=== PATIENT | female | born 1990 | race Caucasian/White ===

== ENCOUNTER 2024-09-08 15:09 | Emergency (ER) | payer BC, SELFPAY ==
[2024-09-08 15:22] VITALS: BP 117/74; PULSE 90; RESP 16; TEMP 36.6; O2SAT 98; BMI 43.6
--- NOTE | 2024-09-08 16:10 | CRLHL7_ITS ---
For Patients: As a result of the Century Cures Act, medical imaging exams and procedure reports are released immediately into your electronic medical record. You may view this report before your referring provider. If you have questions, please contact your health care provider. Indication: Right flank pain. Technique: CT images of the abdomen and pelvis following intravenous contrast. Comparison: None. Findings: No concerning opacities in the visualized lungs. No pleural effusion. Heart size is normal. The liver, gallbladder, spleen, and pancreas are unremarkable. The adrenal glands and kidneys are unremarkable. The stomach is mildly distended. Appendix is unremarkable. No abnormally dilated loops of bowel. No free fluid or free air. Abdominal aorta is normal in caliber. No pathologically enlarged lymph nodes. The urinary bladder is underdistended. Hysterectomy. No aggressive osseous lesions. Impression: No acute abnormality in the abdomen or pelvis. Please note that all CT scans at this facility use dose modulation, iterative reconstruction, and/or weight-based dosing when appropriate to reduce radiation dose to as low as reasonably achievable. Dictated by Rian Knight MD @ 09/08/2024 6:21:01 PM (Electronically Signed)
--- NOTE | 2024-09-08 16:25 | ED.GENADULT ---
HPI - General Adult General Date Seen: 09/08/24 Chief complaint: Flank Pain Stated complaint: back pain/left foot pain Time Seen by Provider: 09/08/24 15:51 Source: patient and translator/interpreter Mode of arrival: ambulatory Limitations: no limitations History of Present Illness HPI narrative: Patient is a 34-year-old female presenting to the emergency department for multiple complaints. Her 1st complaint is left foot pain that has been going on for the past month. It is on the plantar aspect of her foot near her heel. She states it is worse in the morning and also worse whenever she is walking around. Has never had pain like this before. She feels like the pain goes up her leg. Has been using ibuprofen at home with minimal improvement in her symptoms. Denies numbness or weakness of the foot. She is also complaining about right flank pain. She states the pain starts in her right low flank and radiates to her mid low back. This pain is been going on for the past few days. Seems to be getting worse she states. Nothing seems to be making it better. 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 Does not remember hurting her back though. She does states she has been having intermittent burning with urination over the past couple months. She states the burning sensation will go on for couple days then go away for few days and continues to go back and forth. She has not seen her primary care provider for any of these issues yet. Describes the back pain also as a burning sensation. Does not seem to radiate anywhere. Denies any abdominal pain. Denies chest pain, shortness of breath, lightheadedness, dizziness, weakness numbness, fevers, chills, nausea. Denies urinary retention, urinary or bowel incontinence, saddle anesthesia. Related Data Home Medications ?Medication ?Instructions ?Recorded ?Confirmed insulin aspart U-100 100 unit/mL 16 - 30 unit subcut 3XD 08/02/23 09/08/24 (3 mL) subcutaneous pen (Novolog FlexPen U-100 Insulin aspart) insulin lispro 100 unit/mL 1 sliding scale dose subcut 01/21/24 01/21/24 subcutaneous pen Allergies Allergy/AdvReac Type Severity Reaction Status Date / Time Iodinated Contrast Media Allergy Intermediate itch Verified 09/08/24 15:27 metformin AdvReac Unknown Verified 09/08/24 15:20 Review of Systems Status of ROS: Reports: 10 or more systems reviewed and unremarkable except as noted in History and below Exam Narrative: Exam Narrative: Const: Well-nourished, Well-developed, in mild distress Eyes: PERRL, no conjunctival injection, and symmetrical lids HENT: Atraumatic external nose and ears. Moist mucous membranes. Neck: Symmetric, trachea midline, No thyromegaly. CVS: RRR, No murmurs or gallops. Peripheral pulses 2+ and equal in all extremities RESP: Unlabored respiratory effort. Clear to auscultation bilaterally. GI: Nontender/Nondistended, No rebound or guarding. MSK: Tenderness near the heel on the plantar aspect of left foot with worsening pain on dorsiflexion of the toes. Mild tenderness palpation right low flank Skin: Warm, Dry. No rashes or lesions. Neuro: Normal Muscle tone, No focal neurological deficits. Psych: Awake, Alert, & Oriented x3. Appropriate mood and affect. Const: Vital Signs, click to edit/add: Vital Signs - 24 hr 09/08/24 15:22 Temperature 97.8 F Pulse Rate [Pulse Oximeter] 90 Respiratory Rate 16 Blood Pressure [Le ft Upper Arm] 117/74 Pulse Oximetry 98 Oxygen Delivery Me thod Room Air Course Vital Signs Vital signs: Initial Vital Signs Temperature 97.8 F 09/08/24 15:22 Temperature Source Temporal Artery Scan 09/08/24 15:22 Pulse Rate 90 09/08/24 15:22 Respiratory Rate 16 09/08/24 15:22 Blood Pressure 117/74 09/08/24 15:22 Blood Pressure Mean 88 09/08/24 15:22 Pulse Oximetry 98 09/08/24 15:22 Oxygen Delivery Method Room Air 09/08/24 15:22 Vital Signs Temperature 97.8 F 09/08/24 15:22 Pulse Rate 90 09/08/24 15:22 Respiratory Rate 16 09/08/24 15:22 Blood Pressure 117/74 09/08/24 15:22 Pulse Oximetry 98 09/08/24 15:22 Oxygen Delivery Method Room Air 09/08/24 15:22 Temperature 97.8 F 09/08/24 15:22 Pulse Rate 90 09/08/24 15:22 Respiratory Rate 16 09/08/24 15:22 Blood Pressure 117/74 09/08/24 15:22 Pulse Oximetry 98 09/08/24 15:22 Oxygen Delivery Method Room Air 09/08/24 15:22 Medications Administered Medications: Discontinued Medications Generic Name Dose Route Start Last Admin Trade Name Carie PRN Reason Stop Dose Admin Diphenhydramine HCl 50 mg 09/08/24 16:27 09/08/24 16:49 Diphenhydramine 50 Mg/Ml Inj IVP 09/08/24 16:28 50 mg ONCE ONE Administration Hydrocortisone Sodium Succinate 200 mg 09/08/24 16:27 09/08/24 17:05 Hydrocortisone Sod Succinate 50 Mg/Ml Inj IVP 09/08/24 16:28 200 mg ONCE ONE Administration Ketorolac Tromethamine 15 mg 09/08/24 16:10 09/08/24 16:46 Ketorolac 15 Mg/Ml Inj IVP 09/08/24 16:11 15 mg ONCE ONE Administration Medical Decision Making MDM Narrative Medical decision making narrative: The patient is a 34-year-old female presenting for multiple complaints. For her foot pain it does appear to be plantar fasciitis. This is based on my physical exam. She does state the pain seems to go up the leg but my concern for DVT is very low. I do not believe any imaging is necessary. She is also having flank pain. The differential diagnosis of flank pain including vascular causes such as aortic aneurysm, renal vascular issues, aortic dissection, mesenteric ischemia, nephrolithiasis, ureter stricture, pyelonephritis, along with several other GI and gynecological/ causes. Considering she is having some intermittent dysuria I do have some slight concern for pyelonephritis. Will do CT scan with IV contrast. This also up look for any kidney stones. Concern for aortic dissection, mesenteric ischemia or any other severe issues is very low. She has otherwise normal vital signs. Will give her some Toradol for pain. Will also order a BMP, CBC, urine test, urinalysis. She does have an IV dye allergy so premedication was ordered. Lab work returned showing no concerning abnormalities. No signs of UTI. CT scan reviewed by myself and the radiologist shows no acute concerning abnormalities. At this time considering everything I do believe her back pain is musculoskeletal in nature. Likely from her favoring the right leg due to the plantar fasciitis in the left foot. She will be discharged home and she is agreeable to this plan. Lab Data Labs: Lab Results 09/08/24 09/08/24 09/08/24 Range/Units 16:11 16:15 16:34 WBC 9.84 (4.50-11.00) K/uL RBC 4.77 (4.00-5.20) m/uL Hgb 13.9 (12.0-16.0) gm/dL Hct 40.1 (33.0-51.0) % MCV 84 (80-100) fL MCH 29 (26-34) pg MCHC 35 (32-36) gm/dL RDW Coeff of Shanthi 12.5 (11.5-15.5) % Plt Count 324 (140-440) K/uL Neut % (Auto) 64.4 (42.0-72.0) % Lymph % (Auto) 27.0 (20-44) % [place] % (Auto) 5.9 (0.0-11.0) % Eos % (Auto) 2.1 (0.0-7.0) % Baso % (Auto) 0.3 (0.0-3.0) % Neut # (Auto) 6.33 (1.7-7.0) K/uL Lymph # (Auto) 2.66 (0.90-2.90) K/uL [place] # (Auto) 0.60 (0.00-0.90) K/UL Eos # (Auto) 0.21 (0.00-0.50) K/uL Baso # (Auto) 0.03 (0.00-0.30) K/uL Abs Immat Gran (auto) 0.03 (0.00-0.30) K/uL Imm/Tot Granulo (auto) 0.3 % Sodium 140 (135-149) mmol/L Potassium 3.7 (3.6-5.1) mmol/L Chloride 105 (96-114) mmol/L Carbon Dioxide 25 (20-32) mmol/L Anion Gap 10 (7-15) mEq/L BUN 19 (5-24) mg/dL Creatinine 0.5 (0.5-1.5) mg/dL Estimated Creat Clear 135.61 Estimated GFR 125 ml/min Glucose 156 H (60-115) mg/dL Calcium 9.0 (8.4-10.6) mg/dL Urine Color Yellow (Yellow) Urine Appearance Clear (Clear) Urine pH 6.0 (5.0-8.5) Ur Specific [place] >= 1.030 (1.000-1.030) Urine Protein Negative (Negative) Urine Glucose (UA) Negative (Negative) Urine Ketones Trace A (Negative) Urine Blood Negative (Negative) Urine Nitrite Negative (Negative) Urine Bilirubin Negative (Negative) Urine Urobilinogen 0.2 (0.2-1.0) Ur Leukocyte Esterase Negative (Negative) Urine RBC 0-2 (0-2) Urine WBC 0-2 (0-5) Ur Squamous Epith Cells Few (None-Few) Urine Bacteria None (None) Urine HCG, Qual Negative (Negative) POC Creatinine 0.5 L (0.6-1.3) mg/dl Discharge Plan Discharge Clinical Impression: Plantar fasciitis of left foot Low back pain Qualifiers: Chronicity: acute Back pain laterality: right Sciatica presence: without sciatica Qualified Code(s): M54.50 - Low back pain, unspecified Patient Disposition: Home, Self-Care Condition: Stable Instructions: Plantar Fasciitis (ED), Acute Low Back Pain (ED), Plantar Fasciitis Exercises (ED) Additional Instructions: I believe your foot pain is related to plantar fasciitis. Recommend close follow-up with her primary care provider for possible referral or physical therapy. I do believe your back pain is musculoskeletal in nature also a related to be favoring her right leg due to your foot pain. Take Tylenol and ibuprofen at home for pain. Return to emergency department for new or worsening symptoms. Prescriptions: No Action insulin lispro 100 unit/mL insulin pen 1 sliding scale dose subcut insulin aspart U-100 [Novolog FlexPen U-100 Insulin] 100 unit/mL (3 mL) insulin pen 16 - 30 unit subcut 3XD Follow Up/Referrals: Provider,Not a Local [Primary Care Provider] - Stand Alone Forms: [employer] Info Instructions
[2024-09-08 16:31] LABS: Creatinine, Point-of-Care* 0.5 mg/dl (0.6-1.3)
[2024-09-08 16:35] LABS: Basophils Absolute Auto 0.03 K/uL (0.00-0.30); Basophils Percent Auto 0.3 % (0.0-3.0); Eosinophils Absolute Auto 0.21 K/uL (0.00-0.50); Eosinophils Percent Auto 2.1 % (0.0-7.0); Hematocrit 40.1 % (33.0-51.0); Hemoglobin* 13.9 gm/dL (12.0-16.0); Immature Granulocytes Abs Auto 0.03 K/uL (0.00-0.30); Immature Granulocytes Pct Auto 0.3 %; Lymphocytes Absolute Auto 2.66 K/uL (0.90-2.90); Mean Corpuscular HGB Conc 35 gm/dL (32-36); Mean Corpuscular Hemoglobin 29 pg (26-34); Mean Corpuscular Volume 84 fL (80-100); Monocytes Percent Auto 5.9 % (0.0-11.0); Neutrophils Absolute Auto 6.33 K/uL (1.7-7.0); Neutrophils Percent Auto 64.4 % (42.0-72.0); Platelet Count* 324 K/uL (140-440); RDW Coefficient of Variation % 12.5 % (11.5-15.5); Red Blood Count 4.77 m/uL (4.00-5.20); White Blood Count* 9.84 K/uL (4.50-11.00)
[2024-09-08 16:38] LABS: Slide Review Reflex No
--- OUTSIDE RECORDS SUMMARY | 2024-09-08 16:39 | XMS_ITS | Clinical Summary ---
Author Organization [facility] Address [address] [place] [address] Care Team Providers Care Brewing Director Name Role Phone MartinBertoKatyasher Mandel DO Primary Care Provider [phone] Janice Matias RN Unavailable Casey Rider MD Unavailable [phone] Allergies Active Allergy Reactions Criticality Noted Date Comments Diatrizoate Allergen Hives Low 03/09/2021 PT WAS GIVEN 100 ML OMNI 350. SHE HAD ITCHING L SIDE OF NOSE AND RT EAR. POSSIBLY A HIVE ON EAR. PT CAN BE PREMEDICATED IN THE FUTURE. Metformin Diarrhea 07/21/2018 nausea both SA and xr formulations. Medications blood-glucose meter (GLUCOCARD VITAL) Use to test blood sugars 3 times per day 1 Each 11/27/19 20 12:15 PM CDT 020 Active lancets (TECHLITE LANCETS) 28 gauge misc Use to test blood sugars 3 times per day 100 Each 11/27/19 20 12:15 PM CDT 020 Active ketoconazole 2% shampoo (NIZORAL) 2 % shampooIndicatio ns:Seborrheic dermatitis Apply topically to affected area(s) once weekly. Lather on damp scalp, leave on for 5min, then rinse with water. 120 mL 5 022 Active clindamycin 1% (CLEOCIN-T) 1 % lotionIndication s:Acne, unspecified acne type Apply topically to affected area(s) two times daily. For facial acne 60 mL 5 022 Active spironolactone (ALDACTONE) 50 mg tabletIndication s:Hirsutism,Acne , unspecified acne type,Androgeneti c alopecia Take once a day for two weeks. If tolerated increase to twice daily 180 Tablet 1 022 Active FreeStyle Kiki 2 ReaderIndication s:Diabetes 1.5, managed as type 1 (HC) To be used to read blood sugars per deputy chief executive's directions. 1 Each 024 Active Lantus Solostar U-100 Insulin 100 unit/mL (3 mL) penIndications:T ype 1 diabetes mellitus without complications (HC) Inject 60 units subcutaneous two times daily. Product desired: LANTUS 90 mL 3 024 Active insulin lispro, U-100, (HUMALOG KWIKPEN; ADMELOG SOLOSTAR) 100 unit/mL inpn penIndications:T ype 1 diabetes mellitus without complications (HC) INJECT 40 UNITS AT EACH MEAL PLUS CORRECTION SCALE. UP TO 150 UNITS DAILY 100 mL 025 Active FreeStyle Kiki 3 Sensor for continuous blood glucose monitor (CGM)Indications :Type 1 diabetes mellitus without complications (HC) REPLACE SENSOR EVERY 14 DAYS 6 Each 3 025 Active FreeStyle Kiki 3 Sensor for continuous blood glucose monitor (CGM)Indications :Type 1 diabetes mellitus without complications (HC) To be used to read blood sugars, follow deputy chief executive directions. Change each sensor every 14 days 2 Each 024 2024 Discontinued FreeStyle Kiki 2 SensorIndication s:Diabetes 1.5, managed as type 1 (HC) To be used to read blood sugars per deputy chief executive's directions. 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 Hypertriglyceridemia 02/11/2015 Plantar wart of left foot 10/21/2014 Nausea alone 01/16/2013 Overview (01/16/2013): EGD 01/2013 normal Acne 10/31/2012 Hepatic steatosis 08/12/2012 Depression with anxiety 09/11/2011 Amenorrhea 04/06/2011 Obesity, unspecified 04/06/2011 Encounters Date Type Department Care Team Description 09/08/2024 Nurse Triage [facility] [address] [place] [address] RhondatKaty, DO Back Pain 08/20/2024 Refill [facility] [address] [place] [address] Casey Rider MD Refill Request (Freestyle Kiki 3 Sensor) 07/21/2024 2:10 PM CDT Office Visit [facility] [address] [place] [address] Casey Rider MD Diabetes 07/21/2024 Travel from Last 3 Months Immunizations Immunization Administration Dates Next Due COVID-19 vaccine (Moderna 100mcg/0.5mL) YENNIFER LUCIANO 08/31/2020,08/03/2020 COVID-19 vaccine (Pfizer-Bio NTech 30mcg/0.3mL) YENNIFER LUCIANO 04/13/2021 HPV 9 (Gardasil 9) 02/01/2015 Influenza, IIV4 01/20/2021, 0,01/22/2019,2018,02/01/2015 Tdap 02/01/2015 Family History Medical History Relation Name Comments No Known Problems Brother 1 Deafness Brother 2 Stroke Brother 2 Other Father prediabetes Lung cancer Maternal Grandfather smoker Diabetes type II Mother Stroke Mother Diabetes Paternal Grandfather 3 of hi s sisters, 1 brother Heart attack Paternal Grandfather Diabetes Paternal Grandmother Leukemia Paternal Grandmother No Known Problems Sister Relation Name Status Comments Brother 1 Alive Brother 2 Alive Father Alive Maternal Grandfather Maternal Grandmother Mother Alive Paternal Grandfather Paternal Grandmother Sister Alive Social History Tobacco Use Types Packs/Day Years Used Date Smoking Tobacco: Never Smokeless Tobacco: Never Tobacco Cessation:Counseling Given: Yes Comments:no exposure Alcohol Use Standard Drinks/Week Comments Not Currently 0 (1 standard drink = 0.6 oz pur e alcohol) PHQ-2 Answer Date Recorded PHQ-2 TOTAL SCORE 3 03/17/2021 Social Connections Answer Date Recorded Do you often feel lonely or isolated from those around you? 4 08/28/2023 Financial Resource Strain Answer Date R ecorded Difficulty of Paying Living Expenses 1 08/28/2023 Difficulty of Paying Living Expenses 2 08/28/2023 Food Insecurity Answer Date Recorded Do you worry your food will run out before you are able to buy more? 2 08/28/2023 Transportation Needs Answer Date Record ed Does lack of transportation keep you from medica l appointments? 1 08/28/2023 Does lack of transportation keep you from work, meetings or getting things that you need? 1 08/28/2023 Housing Stability Answer Date Recorded What is your housing situation today? 1 08/28/2023 Utilities Answer Date Recorded Do you have trouble paying f or utilities (for example, heat, electricity, water, phone)? 1 08/28/2023 Comments No Sex and Gender Information Value Date Recorded Sex Assigned at Not on file Legal Sex Female 8:10 AM HEALTH PROFESSOR Gender Identity Not on file Sexual Orientation Not on file Obstetrics History Para Term AB IAB SAB Ectopic Multiple Livin g Live Births 0 0 0 0 0 0 0 0 0 0 0 Last Filed Vital Signs Vital Sign Reading Time Taken Comments Blood Pressure 102/70 07/21/2024 2:37 PM CDT Pulse 84 07/21/2024 2:37 PM CDT Temperature 36.8 C (98.3 F) 02/15/2021 11:23 AM CDT Respiratory Rate 16 07/21/2024 2:37 PM CDT Oxygen Saturation 98% 08/28/2023 9:08 AM CDT Inhaled Oxygen Concentration - - Weight 110.7 kg (244 lb) 07/21/2024 2:37 PM CDT Height 164.2 cm (5' 4.65) 08/28/2023 9:08 AM CD T Body Mass Index 41.05 08/28/2023 9:08 AM CDT Plan of Treatment Upcoming Encounters Date Type Department Care Team (Late st Contact Info) Description 10/23/2024 12:50 PM CDT Office Visit [facility] [address] [place] [address] Casey Rider MD [address] [place] [address] Health Maintenance Due Date Last Done Comments HIV for age 15-65 2004 Hepatitis C screening for ag e 18-79 2007 Hepatitis B series for Diabe maurizio (1 of 3 - 19+ 3-dose series) 2008 Pneumococcal series for age 6-49 (1 of 2 - PCV) 2008 Pap test for age 21-65 05/22/2021 05/22/2018, 2014 Depression screening for age 12+ 03/16/2022 03/16/2021, 08/26/2020, 08/22/2020, Additional history exists BMI (ht and wt on same day) for age 18+ 08/27/2024 08/28/2023, 10/05/2020, 08/22/2020, Additional history exists Influenza Vaccine (Season Ended) 2025 01/20/2021, 02/26/2020, 01/22/2019, Additional history exists Tetanus booster 02/01/2025 02/01/2015 Tdap Completed 02/01/2015 COVID-19 vaccine series Completed 01/28/20, 04/13/2021, 08/31/2020, Additional history exists Medical Devices Implanted Type Area Machine Pan Greaser Device Identifier Shelf Expiration Date Model / Serial / Lot Sys Intrauterine Mirena - [id number] Implanted:Qty: 1 on 08/26/2020 by Dileep Cruz MD at [facility] N/A: Uterus [employer] 01/03/2023 [id number] / [id number] / [id number] Procedures Procedure Name Priority Date/Time Associated Diagnosis Comments HEMOGLOBIN A1C STAT 07/21/2024 2:33 PM CDT Type 1 diabetes mellitus without complications (HC) BASIC METABOLIC PANEL STAT 07/21/2024 2:33 PM CDT Type 1 diabetes mellitus without complications (HC) STICK FEEDER THIN PREP PAP SCREEN IMAGED Routine 05/22/2018 9:53 AM HEALTH PROFESSOR Pap smear for cervical cancer screening from Last 3 Months or Most Recently Relevant to Health Maintenance Results * (ABNORMAL) HEMOGLOBIN A1C (07/21/2024 2:33 PM CDT) HEMOGLOBIN A1C SCREENING 9.4(H) <=6.4 % 07/21/2024 2:45 PM CDT [facility] Blood BLOOD SPECIMEN / Unknown [facility] / Unknown 07/21/2024 2:33 PM CDT 07/21/2024 2:34 PM CDT [facility] - 07/21/2024 2:45 PM CDT (<5.7%) Normal (5.7% to 6.4%) Indicates prediabetes (>=6.5%) Confirms diabetes Falsely low levels may be seen with: Recent Transfusion, Recent Significant Blood Loss, Hemolytic Diseases, or Falsely elevated levels may be seen with: Untreated Anemias, Splenectomy us Casey Rider MD CHEMISTRY Final Resu lt [facility] SENDOUT [place]NAL ZIP [id number] [place] [id number] * (ABNORMAL) BASIC METABOLIC PANEL (07/21/2024 2:33 PM CDT) SODIUM 137 136 - 145 mmol/L 07/21/2024 3:03 PM CDT [facility] POTASSIUM 4.0 3.5 - 5.1 mmol/L 07/21/2024 3:03 PM CDT [facility] CHLORIDE 100 98 - 107 mmol/L 07/21/2024 3:03 PM CDT [facility] CO2,TOTAL 26 22 - 29 mmol/L 07/21/2024 3:03 PM CDT [facility] ANION GAP 11 5 - 18 07/21/2024 3:03 PM CDT [facility] GLUCOSE 235(H) 70 - 99 mg/dL 07/21/2024 3:03 PM CDT [facility] CALCIUM 9.3 8.8 - 10.4 mg/dL 07/21/2024 3:03 PM CDT [facility] Comment: Reference ranges for this test were updated on 03/10/2024 to reflect our healthy population more accurately. Reference range changes are not retroactively applied to results, but previous results using the same methodology can be interpreted in the context of the new reference range. BUN 16 6 - 20 mg/dL 07/21/2024 3:03 PM T [facility] CREATININE 0.57 0.50 - 0.90 mg/dL 07/21/2024 3:03 PM [facility] BUN/CREAT RATIO 28(H) 10 - 20 3:03 PM T [facility] eGFR >90 >90 mL/min/1. 73m2 07/21/2024 3:03 PM [facility] Comment:As of 2021, eG FR is calculated by the CKD-EPI creatinine equation without race adjustment. eGFR can be influenced by muscle mass, exercise, and diet. The reported eGFR is an estimation only and is only applicable if the renal function is stable. Blood BLOOD SPECIMEN / Unknown [facility] / Unknown 07/21/2024 2:33 PM CDT 07/21/2024 2:34 PM CDT us Casey Rider MD CHEMISTRY Final Resu lt [facility] SENDOUT INTERNAL Z[id number] [place] [id number] * STICK FEEDER THIN PREP PAP SCREEN IMAGED (05/22/2018 9:53 AM HEALTH PROFESSOR) Case Report Gynecologic Cytology Report Case: [id number] Authorizing Provider: Emily Carrizales, Collected: 05/22/2018 0953 PA Ordering Location: [facility] Received: 05/22/2018 1014 Clinic First Screen: Meghan Chan Specimen: STICK FEEDER ThinPrep Vial Screening, Cervical 06/02/2018 9:36 AM HEALTH PROFESSOR [facility] LABORATORY-C ENTRAL LABORATORY INTERPRETATION/ RESULT NEGATIVE FOR INTRAEPITHELIAL LESION OR MALIGNANCY (NIL) (none) 06/02/2018 9:36 AM HEALTH PROFESSOR [facility] LABORAT[facility]-C ENTRAL LABORATORY at 0936 HEALTH PROFESSOR SPECIMEN ADEQUACY Satisfactory for evaluation No endocervical component seen 06/02/2018 9:36 AM HEALTH PROFESSOR [facility] HPV REQUEST HPV if ASCUS 06/02/2018 9:36 AM HEALTH PROFESSOR [facility] EN[facility] Date of LMP Unknown 06/02/2018 9:36 AM HEALTH PROFESSOR [facility] Last Pap Date 02/01/15 06/02/2018 9:36 AM HEALTH PROFESSOR [facility] Last Pap Result NIL 9 9:36 AM HEALTH PROFESSOR [facility] Abnormal Pap or [place] Bx in last 5 years No 06/02/2018 9:36 AM HEALTH PROFESSOR [facility] Menstrual Status Irregular Periods 06/02/2018 9:36 AM HEALTH PROFESSOR [facility] [place] Bx Done Today No 06/02/2018 9:36 AM HEALTH PROFESSOR [facility] Additional Information None given 06/02/2018 9:36 AM [facility] Automated Review Successful 06/02/2018 9:36 AM [facility] Comment:Specimen processed s uccessfully by automated flatwork finisher hand device, ThinPrep Imaging System, [employer] Note The pap test is a screening technique, not a diagnostic procedure. It is used primarily to screen for squamous cancers and precursor lesions. Published studies have shown that it is subject to both false negative and false positive results. The pap test should not be used as the sole means to diagnose or exclude pre-malignant and malignant lesions. Cytology is screened and interpreted at [facility], Central Laboratory - [address], [place] [address] and [facility] - [address] [place] [address]; [place] [address] and [facility] - [address]; [place] [address] and [facility] [address]; [place] [id number] 06/02/2018 9:36 AM HEALTH PROFESSOR [facility] Other (Cervical) Non-Blood / Unknown 05/22/2018 9:53 AM HEALTH PROFESSOR 05/22/2018 10:14 AM HEALTH PROFESSOR us Emily PANDEY PATHOLOGY/CYTOLOGY nal Result [facility]AL LABORATORY [address] [place] [address], [place] from Last 3 Months or Most Recently Relevant to Health Maintenance Insurance [id number] [facility] [place] Advance Directives * Full Code (Latest Code Status on File) Date Activated Date Inactivated Comments 10/10/2020 10:47 AM 10/10/2020 8:28 PM Question Answer Comments Code Status Discussion: Not Discussed * Full Code Date Activated Date Inactivated Comments 08/26/2020 6:09 AM 08/26/2020 8:53 PM Question Answer Comments Code Status Discussion: Not Discussed Care Teams Brewing Director Relationship Specialty Start Date End Date Katy Salazar DO [facility] [place] [address] PCP - General Family Practice 06/24/18 Janice Matias RN [address] [place] [id number] Night Warehouse Manager 06/15/21 Casey Rider MD [address] [place] [address] Endocrinology 06/20/22
[2024-09-08] MEDS: KETOROLAC 15 MG/ML inj IVP (16:46)
[2024-09-08 16:47] LABS: Chloride* 105 mmol/L (96-114)
[2024-09-08 16:48] LABS: Potassium* 3.7 mmol/L (3.6-5.1); Sodium* 140 mmol/L (135-149)
[2024-09-08] MEDS: diphenhydrAMINE 50 MG/ML inj IVP (16:49)
[2024-09-08 16:50] LABS: Blood Urea Nitrogen* 19 mg/dL (5-24); Creatinine* 0.5 mg/dL (0.5-1.5); Est. Creatinine Clearance* 135.61; Estimated Glomerular Filt Rate 125 ml/min
[2024-09-08 16:51] LABS: Anion Gap 10 mEq/L (7-15); Carbon Dioxide* 25 mmol/L (20-32); Glucose* 156 mg/dL (60-115)
[2024-09-08 16:53] LABS: Appearance Urine Clear (Clear); Bilirubin Urine Negative (Negative); Blood Urine Negative (Negative); Color Urine Yellow (Yellow); Glucose Urine Negative (Negative); Ketones Urine Trace (Negative); Leukocyte Esterase Urine Negative (Negative); Nitrite Urine Negative (Negative); Protein Urine Negative (Negative); Specific Gravity Urine >= 1.030 (1.000-1.030); Urobilinogen Urine 0.2 (0.2-1.0)
[2024-09-08] MEDS: HYDROCORTISONE SOD SUCCINATE 50 MG/ML inj 200 MG IVP (17:05)
[2024-09-08 17:36] LABS: RBC Urine 0-2 (0-2); Squamous Epithelial Cell Urine Few (None-Few); WBC Urine 0-2 (0-5)
[2024-09-08 17:54] LABS: Ur HCG Qualitative* Negative (Negative)
== END 2024-09-08 18:54 | disposition home or self-care (01) ==
PROVIDERS: Emergency Provider Student in an Organized Health Care Education/Training Program
DX: M72.2 Plantar fascial fibromatosis (principal); M54.50 Low back pain, unspecified; R30.0 Dysuria
CPT/HCPCS: 36415; 74177; 80048; 81001; 81025; 82565; 85025; 96374; 96375; 99284; 99285; J1200; J1720; J1885; Q9967